=== PATIENT | female | born 1985 | race Caucasian/White ===

== ENCOUNTER → 2020-10-14 09:38 | Outpatient (CLI) | payer BC, SELFPAY ==
[2020-10-14 20:24] LABS: SARS-CoV-2 RNA PCR Negative
== END ==
PROVIDERS: PCP Physician Assistant; Visit Provider Physician Assistant
DX: Z20.822 Contact with and (suspected) exposure to COVID-19 (principal)
CPT/HCPCS: C9803; U0003; U0005